=== PATIENT | male | born 1960 | race Caucasian/White ===

== ENCOUNTER 2016-06-27 05:22 | Observation (INO) | payer BC ==
[2016-06-25 17:43] LABS: BASOPHILS 0.3 %; BASOPHILS ABSOLUTE 0.02 10/3/uL (0.0-0.16); EOSINOPHILS 1.9 %; EOSINOPHILS ABSOLUTE 0.11 10/3/uL (0.0-0.53); HEMATOCRIT 38.5 % (40.0-51.0); HEMOGLOBIN 13.2 g/dL (13.6-17.8); IMMATURE GRANULOCYTES 0.2 %; IMMATURE GRANULOCYTES ABSOLUTE 0.01 10/3/uL (0.0-0.11); LYMPHOCYTES 27.8 %; LYMPHOCYTES ABSOLUTE 1.61 10/3/uL (0.67-4.30); MANUAL DIFF NO %; MEAN CORPUS HGB CONC 34.3 g/dL (32.0-36.0); MEAN CORPUSCULAR HEMOGLOB 30.7 pg (26.0-34.0); MEAN CORPUSCULAR VOLUME 89.5 fL (80-100); MEAN PLATELET VOLUME 9.9 fL (9.2-13.0); MONOCYTES 8.5 %; MONOCYTES ABSOLUTE 0.49 10/3/uL (0.21-1.20); NEUTROPHILS 61.3 %; NEUTROPHILS ABSOLUTE 3.55 10/3/uL (2.02-8.40); PLATELET COUNT 243 10/3/uL (150-400); RBC DISTRIBUTION WIDTH 12.7 % (12.0-16.0); WHITE BLOOD CELLS 5.8 10/3/uL (4.5-10.5)
[2016-06-25 18:08] LABS: A/G RATIO 1.5 (0.7-1.9); ALBUMIN 4.3 G/DL (3.5-5.0); ALKALINE PHOSPHATASE 72 U/L (45-117); CALCIUM, SERUM 9.4 MG/DL (8.5-10.4); CHLORIDE, SERUM 109 MMOL/L (96-112); CO2 (CARBON DIOXIDE) 27 MMOL/L (24-34); GLOBULIN 2.8 G/DL (2.5-4.1); POTASSIUM, SERUM 3.9 MMOL/L (3.5-5.3); SGOT(AST) 25 U/L (5-40); SGPT(ALT) 41 U/L (5-65); SODIUM, SERUM 144 MMOL/L (135-148); TOTAL BILIRUBIN 0.3 MG/DL (0-1.2); TOTAL PROTEIN 7.1 G/DL (6.0-8.5)
[2016-06-25 18:09] LABS: BUN (BLOOD UREA NITROGEN) 20 MG/DL (6-23); CREATININE 1.33 MG/DL (0.70-1.30); GFR AFRICAN AMERICAN 68 ML/MIN (>=60); GFR NON AFRICAN AMERICAN 59 ML/MIN (>=60); GLUCOSE, SERUM 92 MG/DL (60-99)
--- NOTE | ~2016-06-27 | OP ---
Record Of Operation [facility] [address] [place]. 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 POSTOPERATIVE DIAGNOSIS: Recurrent malignant melanoma of the upper back or posterior neck with left cervical lymph node metastasis. PROCEDURE: Wide local resection of recurrent malignant melanoma of upper back or posterior neck including portion of trapezius muscle. SURGEON: Justin Baca M.D. ANESTHESIA: General with intubation. COMPLICATIONS: None. ESTIMATED BLOOD LOSS: Less than 10 mL. SPECIMENS: Recurrent melanoma from upper back and posterior neck including skin, subcutaneous tissue, and portion of the trapezius muscle. COMPLICATIONS: None. DRAINS: John-Blanc in subcutaneous tissue. LAP AND SPONGE COUNT: Correct x3. BRIEF HISTORY: This 55-year-old male presented with recurrent malignant melanoma over the upper back or posterior neck. This melanoma was located slightly inferior to the previous transverse incision of the posterior neck. In addition, the patient's workup showed evidence for a left cervical lymph node to be positive for malignancy. This was based on PET scan. The patient had no evidence for disease elsewhere. This was felt to be a potentially curable process. It was felt that wide local resection of the area of the upper back and neck was indicated to include the area of recurrence and in addition it was felt that left neck dissection was indicated. The neck dissection will be performed by Dr. Manolo Matthews and will be dictated separately per him. Regarding the resection of the recurrent melanoma of the upper back or neck, the procedure, risks, benefits, and alternatives, including not limited to the risk for bleeding, infection, pain, swelling, scarring, deformity to the area, seroma formation, hematoma formation, wound failure, wound dehiscence, nerve injury, chronic paresthesias, pain, numbness, neuralgia or neuroma, spinal accessory nerve injury with muscle weakness or paralysis in muscles of upper back or shoulder, and unforeseen complications including deep venous thrombosis, pulmonary embolus, myocardial infarction, stroke, pneumonia, and , were fully explained to the patient's family prior to the surgery. The expected length of recovery was explained. The patient Record Of [facility] [place]. [address] NAME: JERAMY MAYFIELD : 56 STATUS : DIS Robyn PAT#: [id number] AGE: 55 ADM/REG DATE : 06/27/16 MR#: [id number] REPORT SERV DATE: 06/29/16 DICTATED BY: JUSTIN BACA III DATE: 06/29/16 REPORT STATUS : Draft TRANSCRIBED BY: YUE DATE: 06/29/16 and family had questions which were answered. They understood the risks and agreed to the surgery as planned. DESCRIPTION OF PROCEDURE: After being properly identified and after discussing risks of surgery with the patient and his family again in the preoperative area, and after identifying the area of concern with him in the preoperative area, the patient was taken to the operating room and placed in the supine position on a stretcher adjacent to the operating room table. General anesthesia was administered. He was intubated without difficulty. He was then carefully rolled into the prone position on the operating room table. Appropriate pads were placed beneath his chest and extremities. This was done very carefully and meticulously. The upper back and neck areas were prepped and draped sterilely in the usual fashion. After an appropriate "time-out" per JCAHO standards, a wide elliptical shaped horizontally oriented incision was made around the melanoma over the upper back or posterior neck. This incision was made so as to incorporate the previous incision. The incision was continued through the subcutaneous tissue. Superior and inferior skin and subcutaneous tissue flaps were raised. The incision was made so as to have at least a 2 cm margin around the area of recurrence. There was noted to be a second nodule in the subcutaneous tissue which was incorporated within the dissection. The tumor was felt to encroach upon or possibly invade the trapezius muscle. For this reason, a portion of trapezius muscle which was involved was resected. We were mindful of the possibility of the spinal accessory nerve in the area but it was not encroached upon. The entire block of tissue again consisting of skin and subcutaneous tissue, a portion of trapezius muscle, the main recurrent lesion as well as the site lesion was then resected en bloc. Grossly clear margins were obtained. The specimen was oriented with sutures. This was sent for permanent pathology. The area was irrigated copiously with saline. Again, generous skin and subcutaneous tissue flaps were raised to allow for primary closure. A John-Blanc drain was brought through a separate stab wound and placed in the subcutaneous tissue. The muscle edges were reapproximated with interrupted 2-0 Vicryl sutures. The subcutaneous tissue was closed with a running 3-0 chromic suture and the skin was closed with interrupted 3-0 Prolene sutures. Dressings were applied. At this time, the patient was rolled back into the supine position for the neck dissection. This will be dictated separately per Dr. Manolo Matthews. The patient tolerated the procedure well, will remain in the hospital for postoperative care. ALEJANDRO/YUE Justin Baca III, M.D. / [id number] CC: Junior Denis III, M.D.
--- NOTE | ~2016-06-27 | OP ---
Record Of Operation [facility] [address] [place]. [address] NAME: JERAMY MAYFIELD : 56 STATUS : DIS Robyn PAT#: [id number] AGE: 55 ADM/REG DATE : 06/27/16 MR#: [id number] REPORT SERV DATE: 07/01/16 DICTATED BY: ALIYA CALLES DATE: 07/01/16 REPORT STATUS : Draft TRANSCRIBED BY: MODL DATE: 07/01/16 DATE OF PROCEDURE: 06/27/2016 PREOPERATIVE DIAGNOSIS: Recurrent malignant melanoma of the left shoulder subcutaneous nodule. POSTOPERATIVE DIAGNOSIS: Recurrent malignant melanoma of the left shoulder subcutaneous nodule. PROCEDURE PERFORMED: 1. Left posterolateral neck dissection. 2. Transposition of left cranial nerve #11. 3. Repair of Chyle leak, thoracic duct ligation. 4. Sternocleidomastoid muscle rotation flap patch of the thoracic duct leak. SURGEON: Aliya Calles M.D. POACHER WRINGER OPERATOR: Ambrocio Arora M.D. ANESTHESIA: General. COMPLICATIONS: None. CONDITION: Stable to recovery. INDICATIONS: A 55-year-old male with a history of malignant melanoma of the left shoulder, who underwent wide local excision and sentinel lymph node biopsy by Dr. Kendrick Roach over a year previously and had a recurrence in the left shoulder. The sentinel node had localized in the left level 5 region, so there was drainage into the neck. For this reason, we proceeded on with recommended wide re-excision of the satellite subcutaneous recurrence and this was to be done by Dr. Kyle Noguera and then proceeding on with the comprehensive neck dissection in the area of the at-risk lymphatics. PROCEDURE IN DETAIL: The patient was identified in preoperative holding, taken back to the operating room, and placed actually prone for the initial procedure by Dr. Kyle Noguera. He performed a wide excision of the shoulder lesion, closure of this area and then, I was called to the room to complete the neck dissection on the left side. Once in the room, a time-out was called and my procedure was confirmed. We placed the patient in the supine position with a shoulder roll with exposure of the left neck. I outlined an incision from the mastoid tip down just anterior to the incision, performed by Dr. Kyle Noguera and then this was curved into the supraclavicular fossa and just above the clavicle. This was infiltrated subcutaneously with 1% lidocaine with 1:100,000 epinephrine. He was prepped and draped in a standard fashion for the operation. Using 2.5x loupe magnification and headlight illumination, the operation commenced. A Bovie cautery was used on the cut mode to make the initial skin incision. Then, the cautery mode was used to elevate subplatysmal flaps superiorly and inferiorly, laterally, and medially. The operation commenced using Record Of Operation [address] [place]. [address] NAME: JERAMY MAYFIELD : 56 STATUS : DIS Robyn PAT#: [id number] AGE: 55 ADM/REG DATE : 06/27/16 MR#: [id number] REPORT SERV DATE: 07/01/16 DICTATED BY: ALIYA CALLES DATE: 07/01/16 REPORT STATUS : Draft TRANSCRIBED BY: YUE DATE: 07/01/16 2.5x loupe magnification and headlight illumination. I took the fascia off the sternomastoid muscle releasing the anterior border and the posterior borders, bringing the fascia from an anterior to posterior direction. We transected this cervical cutaneous nerves, Erb's plexus and then identified the spinal accessory nerve just superior and deep to this. It did not stimulate well with the nerve stimulator. However, Dr. Noguera had previously removed a portion of the trapezius muscle as a margin with the initial excision and we figured this could be strong to have impact on the ability for this nerve to stimulate. We then transposed this nerve by dissecting it out of dense adhesion and scar tissue from the previous sentinel lymph node biopsy that had been performed prior. We released the nerve all the way down from superior to inferior to the insertion into the trapezius musculature and was able to dissect the lymph nodes inferiorly through the supraclavicular fossa off the clavicle and over the cervical rootlets of the low inferior deep neck using transverse cervical vessels as an inferior and deep margin. We reflected this underneath the sternocleidomastoid muscle and brought into continuity with the jugular lymphatics levels 2, 3, and 4. The thoracic duct was encountered inferiorly, initially the largest duct was clipped as it was identified prior to transecting it. Deeper and more medial, there was leakage from a smaller vessel and this was clipped with a medium hemoclip. The lymph nodes from levels 2, 3, and 4 were then dissected off the jugular vein medially and just inferior to the submandibular gland and sent as levels 2, 3, 4, and 5. 2B submuscular recess was dissected as well. This involved circumferentially dissecting the spinal accessory nerve as it traversed to the jugular vein and digastric muscle. The stimulating of the nerve more proximal did reveal some movement of the sternocleidomastoid muscle and initially during the stimulation, a small amount of movement of the trapezius muscle. Following this, the lymphatic tissue from superior to the spinal accessory nerve along up towards the mastoid and the trapezius muscle was dissected as an additional level 5 dissection and this met up with the dissection, which had been performed by Dr. Kyle Noguera in the posterior neck shoulder region. At the end of the case, a small inferiorly based cuff of sternocleidomastoid of the lateral aspect of the sternocleidomastoid muscle was rotated into the thoracic duct leak site and Tisseel was placed over the muscle for additional coverage of this area that had leaked. At the end of the case, the wound was irrigated. There was no evidence of bleeding or chyle leak. The platysma was closed in layers using 3-0 interrupted Vicryl suture and khadra were placed in the skin. The spinal accessory nerve had been dissected out of the scar tissue and had been surrounded with Vesseloops and had been transposed anteriorly and posteriorly to allow for dissection of the lymph nodes in the posterior triangle. A 10-[place] flat fully perforated drain was placed and secured with a 3-0 Vicryl suture. The patient was awakened and taken to recovery in stable condition. PH/MODL Aliya Calles M.D. / [id number] Record Of Operation [place] [id number] [facility] [place]. [address] NAME: JERAMY MAYFIELD : 56 STATUS : DIS Robyn PAT#: [id number] AGE: 55 ADM/REG DATE : 06/27/16 MR#: [id number] REPORT SERV DATE: 07/01/16 DICTATED BY: ALIYA CALLES DATE: 07/01/16 REPORT STATUS : Draft TRANSCRIBED BY: MODL DATE: 07/01/16 CC: Junior Denis III, M.D.
--- NOTE | ~2016-06-27 | PREOPHP ---
PreOp History and Physical [place] [place] [id number] [place]. [address] NAME: JERAMY MAYFIELD : 56 STATUS : PRE [facility] [facility] PAT#: [id number] AGE: 55 ADM/REG DATE : MR#: [id number] REPORT SERV DATE: 06/26/16 DICTATED BY: JUSTIN BACA III DATE: 06/18/16 REPORT STATUS : Draft TRANSCRIBED BY: MODL DATE: 06/18/16 HISTORY OF PRESENT ILLNESS: This 55-year-old male comes to the operating room for wide local resection of recurrent malignant melanoma of the upper back. This is in conjunction with a left lymph node dissection to be performed per Dr. Manolo Matthews. The patient has a history of malignant melanoma of the upper back. At that time, he had a Dusty level IV, 2.3 mm nodular melanoma of the left posterior neck or upper back which was resected by Dr. Balaji Guzman in 09/2014. Recently, the patient was noted to have, on routine followup, a new nodule slightly inferior to his transverse incision over the upper back. Recent corneal biopsy was performed, confirming this to be recurrent melanoma. The patient's workup shows a visible lymph node on PET scan at the base of the left neck felt to be metastatic disease. The patient comes now for wide local resection of the area of recurrence of the upper back, to be done by myself, with a left posterior neck dissection to be performed by Dr. Manolo Matthews. PAST MEDICAL HISTORY: 1. History of coronary artery disease. 2. Coronary artery stent placement. 3. History of hyperlipidemia. 4. History of hypertension. ALLERGIES: NONE. MEDICATIONS: Aspirin, Lipitor, and ramipril. SOCIAL HISTORY: The patient is . He works on [employer]. He has a previous tobacco use for five years. He has a history of alcohol use in the past. He lives locally. REVIEW OF SYSTEMS: The patient complains some local pain over the nodule which has recurred over his upper back. His 14-point review of systems otherwise unremarkable. PHYSICAL EXAMINATION: GENERAL: This is a heavy-set male in no acute distress. He is alert and oriented x3. VITAL SIGNS: Blood pressure 140/90, temperature 98.7, and pulse 67. HEENT: Remarkable for a palpable nodule in the left supraclavicular area corresponding to the PET scan abnormality. He has a firm 2 cm mass in the upper back just inferior to his previous transverse incision over the upper back. Biopsy of this confirms it to be a malignant melanoma. Neck is otherwise unremarkable. Cranial nerves 2 through 12 are normal. LUNGS: Clear. CARDIAC: Normal. MUSCULOSKELETAL: Both axilla normal with no adenopathy. LABORATORY DATA: Recent PET-CT scan shows a large FDG avid neoplasm of the left upper back. There is noted to be a left supraclavicular lymph node, which is FDG avid. There is a 2 cm subcutaneous mass at the posterior left base of the neck, which is FDG avid. There is an 8 mm node medial and deep to the primary nodule which is FDG avid. PreOp History and Physical [address] [address] NAME: JERAMY MAYFIELD : 56 STATUS : PRE [facility] [facility] PAT#: [id number] AGE: 55 ADM/REG DATE : MR#: [id number] REPORT SERV DATE: 06/26/16 DICTATED BY: JUSTIN BACA III DATE: 06/18/16 REPORT STATUS : Draft TRANSCRIBED BY: YUE DATE: 06/18/16 ASSESSMENT: 1. A 55-year-old male with local recurrent and regionally recurrent malignant melanoma of the upper back and left posterior neck, with no evidence for disease outside of this area. 2. Hypertension. 3. Hyperlipidemia. 4. Coronary artery disease. 5. Coronary artery stent placement. PLAN: The patient comes to the operating room now for wide local resection of the locally recurrent melanoma of the upper back or posterior neck. This would be done by myself. The left posterior neck lymph node dissection will be performed per Dr. Manolo Matthews. Regarding the resection of the recurrent lesion over the upper back, the procedure risks, benefits, and alternatives, including not limited to the risk for bleeding, infection, pain, swelling, scarring, deformity to the area, seroma formation, hematoma formation, wound failure, wound dehiscence, nerve injury, chronic paresthesias, pain, numbness, neuralgia or neuroma of the involved area, spinal accessory injury with nerve injury, muscle weakness, or paralysis in muscles of upper back or shoulder, injury to any structure in the neck, and unforeseen complications including deep venous thrombosis, pulmonary embolus, myocardial infarction, stroke, pneumonia, and , have been fully and completely explained to the patient and his prior to surgery. The fact that this is a major operation with risk for major morbidity and mortality was explained and expected length of recovery has been explained. The patient had questions, which were answered. He clearly understands the risks and agrees to surgery as planned. ALEJANDRO/YUE Justin Baca III, M.D. / [id number]
[~2016-06-27 05:22] MED LIST: ALTACE10 MG PO; ASAB PO; LIPITOR20 PO; MULTIVIT/MIN PO
[2016-06-28] MEDS ORDERED: NORCO1 TAB PO (09:27)
== END 2016-06-28 17:16 | disposition home or self-care (01) ==
LOC: SDC 05:22 → SDC/OF 14:17 → 4SO 14:56
PROVIDERS: Specialist; Surgery
PROC: 0HX5XZZ Transfer Chest Skin, External Approach (ICD-10-PCS; 2016-06-27)
PROC: 0JB70ZZ Excision of Back Subcutaneous Tissue and Fascia, Open Approach (ICD-10-PCS; principal; 2016-06-27 06:45)
PROC: [UNRECOGNIZED PROCEDURE] (2016-06-27 06:45)
DX: C43.59 Malignant melanoma of other part of trunk (principal); C77.0 Secondary and unspecified malignant neoplasm of lymph nodes of head, face and neck; I10 Essential (primary) hypertension; I25.10 Atherosclerotic heart disease of native coronary artery without angina pectoris; Z95.5 Presence of coronary angioplasty implant and graft; E78.5 Hyperlipidemia, unspecified; Z87.891 Personal history of nicotine dependence
CPT/HCPCS: 36415; 71020; 80053; 85025; 85730; 86850; 86900; 86901; 88305; 88307; 93005; 96374; 96375; 96376; A9270-GY; G0378; J0690; J2250; J2405; J2710; J3010